=== PATIENT | female | born 1965 | race Caucasian/White ===

== ENCOUNTER 2021-04-08 14:22 | Outpatient (CLI) | payer OTHER ==
--- NOTE | 2021-04-09 10:35 | XRAY Report ---
PROCEDURE: Knee 4 View LT INDICATIONS: LEFT KNEE PAIN TECHNIQUE: 4 views of the left knee(s) were acquired. COMPARISON: None. FINDINGS: Bones: No acute fractures or dislocations. No suspicious bony lesions. Tricompartmental degenerati ve changes of the left knee with medial compartment joint space narrowing on weightbearing views. Soft tissues: There is a small suprapatellar joint effusion. No suspicious soft tissue calcification s. IMPRESSION: Tricompartmental osteoarthrosis of the left knee with mild medial compartment joint spac e narrowing and small suprapatellar effusion. Reviewed by: Todd Agrawal MD on 04/09/2021 10:33 AM PDT Approved by: Todd Agrawal MD on 04/09/2021 10:33 AM PDT Station ID: [id number]
== END 2021-04-08 14:23 | disposition home or self-care (01) ==
LOC: DI.N 14:22
PROVIDERS: ATTEND Physician Assistant
DX: M17.12 Unilateral primary osteoarthritis, left knee (principal); M25.462 Effusion, left knee